=== PATIENT | female | born 1980 | race African-American/Black ===

== ENCOUNTER 2024-05-24 19:49 | Emergency (ER) | payer OTHER, MEDICAID ==
[~2024-05-24] VITALS: Ht 154.9 cm; Wt 98.0 kg
[2024-05-24 20:12] VITALS: O2SAT 99
[2024-05-24] MEDS: HYDROCODONE/ACETAMINOPHEN 10/325MG TABLET PO ONE (22:25)
[2024-05-25] MEDS ORDERED: IBUP-2029 MT (00:17)
[2024-05-25] MEDS ORDERED: LIDO700A30 TP (00:17)
[2024-05-25 01:12] VITALS: BP 165/99; PULSE 77; RESP 20; TEMP 36.9; O2SAT 99
== END 2024-05-25 01:13 | disposition home or self-care (01) ==
LOC: ER 19:49
DX: S06.0XAA Concussion with loss of consciousness status unknown, initial encounter (principal); M54.2 Cervicalgia; M54.9 Dorsalgia, unspecified; I10 Essential (primary) hypertension; Z90.710 Acquired absence of both cervix and uterus; Z88.0 Allergy status to penicillin; V89.2XXA Person injured in unspecified motor-vehicle accident, traffic, initial encounter; Y93.89 Activity, other specified; Y92.89 Other specified places as the place of occurrence of the external cause; Y99.8 Other external cause status
CPT/HCPCS: 72128; 72131; 99284